=== PATIENT | female | born 1945 | race Caucasian/White ===

== ENCOUNTER → 2021-06-04 08:35 | Outpatient (CLI) | payer MEDICARE, SELFPAY ==
[2021-06-04 19:44] LABS: Cholesterol 221 mg/dL (140-199); HDL Cholesterol 81 mg/dL (40-60); LDL Cholesterol Calculated 127 mg/dL (<100); Triglycerides 65 mg/dL (35-150)
== END ==
PROVIDERS: PCP Family Medicine; Visit Provider Family Medicine
DX: E78.2 Mixed hyperlipidemia (principal)
CPT/HCPCS: 80061

== ENCOUNTER → 2021-06-05 10:40 | Outpatient (CLI) | payer MEDICARE, SELFPAY ==
--- NOTE | 2021-06-05 | DI.MRI.S_ITS ---
PROCEDURE: MR ANGIO HEAD WO CON INDICATIONS: Transient cerebral ischemic attack, unspecified TECHNIQUE: Noncontrast axial 3-D [id number] MR angiogram, with 3-dimensional maximum intensity projection (MIP) reformats of the internal carotid arteries and posterior circulation then performed. COMPARISON: Outside Facility, RG, MRI BRAIN WITHOUT CONTRAST, 04/07/2018, 9:23. FINDINGS: Image quality: Excellent. Anterior circulation: Intracranial internal carotid arteries demonstrate normal size and intraluminal flow signal. The flow within the paired anterior cerebral arteries is normal and symmetric. The flow within the middle cerebral arteries is normal and symmetric. The anterior communicating artery is seen. No stenoses, occlusions, or aneurysms. Posterior circulation: Visualized portions of the vertebral arteries demonstrate normal caliber, and join to form a normal appearing basilar artery. The right vertebral artery largely terminates in the right posterior inferior cerebellar artery. There is a prominent right posterior communicating artery seen, with an accompanying diminutive right P1 segment. This is attributed to a type origin of the right posterior cerebral artery, which is considered to be a normal developmental variant of typically no clinical consequence. There is approximately 50% narrowing seen involving the distal right P1 segment. The flow within the posterior cerebral arteries otherwise is normal and symmetric. No stenoses, occlusions, or aneurysms. IMPRESSION: There is focal approximately 50% narrowing seen involving the distal right P1 segment. Awfplt-[id number]-[id number] developmental anomalies are incidentally noted. Dictated by: Jace Garibay M.D. on 06/05/2021 at 10:37 Approved by: Jace Garibay M.D. on 06/05/2021 at 10:39
--- NOTE | 2021-06-05 | DI.US.S_ITS ---
PROCEDURE: US CAROTID DOPPLER BI INDICATIONS: TIA TECHNIQUE: Color and pulse Doppler interrogation was performed of both carotid systems, with image documentation and velocity measurements. COMPARISON: None. FINDINGS: Stenosis calculations are based on SRU (Society of Radiologists in Ultrasound) criteria. Right side: Brachial blood pressure: 136/72 mm Hg. Common carotid artery peak systolic velocity: 72 cm/sec. Internal carotid artery peak systolic velocity: 76 cm/sec. Internal carotid artery end diastolic velocity: 21 cm/sec. External carotid artery peak systolic velocity: 57 cm/sec. ICA/CCA peak systolic ratio: 1.1 . Key scale imaging description: No identified calcific or soft plaque Percent internal carotid artery stenosis: None seen . Vertebral artery: Flow direction is antegrade. Left side: Brachial blood pressure: 138/72 mm Hg. Common carotid artery peak systolic velocity: 76 cm/sec. Internal carotid artery peak systolic velocity: 89 cm/sec. Internal carotid artery end diastolic velocity: 25 cm/sec. External carotid artery peak systolic velocity: 52 cm/sec. ICA/CCA peak systolic ratio: 1.2 . Key scale imaging description: No identified calcific or soft plaque Percent internal carotid artery stenosis: None found . Vertebral artery: Flow direction is antegrade. IMPRESSION: No appreciable stenosis involving the proximal internal carotid arteries bilaterally. Vertebral arterial flow is antegrade in direction. Dictated by: Leonid Yun M.D. on 06/05/2021 at 15:53 Approved by: Leonid Yun M.D. on 06/05/2021 at 16:07
== END ==
PROVIDERS: PCP Family Medicine; Referring Provider Psychiatry & Neurology Neurology; Visit Provider Psychiatry & Neurology Neurology
DX: G45.9 Transient cerebral ischemic attack, unspecified (principal); R47.89 Other speech disturbances
CPT/HCPCS: 70544; 93880

== ENCOUNTER → 2021-11-04 12:04 | Outpatient (CLI) | payer MEDICARE, SELFPAY ==
--- NOTE | 2021-11-04 12:05 | DI.US.S_ITS ---
ULTRASOUND OF LEFT BREAST: 11/04/2021 CLINICAL: Patient returns today to evaluate a focal asymmetry in the left breast. Comparison is made [facility], 07/22/2021 mammogram - [facility], and 07/21/2021 mammogram - [facility]. Color flow and real-time ultrasound of the left breast were performed. Key scale images of the real-time examination were reviewed. There is a 1 cm x 0.4 cm x 0.9 cm wider than tall oval cyst with smooth thin septated internal crouch in the left breast at 8 o'clock middle depth 3 cm from the nipple. This oval cyst is hypoechoic with internal echoes and posterior acoustic enhancement. This correlates with mammography findings. Color flow imaging demonstrates that there is no vascularity present. IMPRESSION: PROBABLY BENIGN The 1 cm x 0.4 cm x 0.9 cm wider than tall oval cyst in the left breast likely represents a complicated cyst and is probably benign. A follow-up bilateral mammogram and a left ultrasound in 6 months is recommended to demonstrate stability. Findings and recommendations were conveyed to the patient during today's evaluation. This exam was interpreted at Station ID: [id number]. Electronically Signed By: Kar Orellana M.D. at/:11/04/2021 13:46:56 letter sent: Followup Recommended Ultrasound BI-RADS: 3 Probably benign
--- NOTE | 2021-11-04 12:05 | DI.MG.S_ITS ---
UNILATERAL LEFT DIGITAL DIAGNOSTIC MAMMOGRAM 3D/2D SHORT-TERM FOLLOW-UP: 11/04/2021 CLINICAL: Additional evaluation requested from prior study. Comparison is made to exams dated: 07/21/2021 mammogram - [facility] and 07/22/2021 mammogram - [facility]. The tissue of left breast is heterogeneously dense. This may lower the sensitivity of mammography. There is a 0.7 cm oval equal density focal asymmetry in the left breast at 7 o'clock middle depth. Previously seen focal asymmetry in the posterior aspect of the upper inner quadrant of the left breast is not seen on today's additional imaging and likely represents summation artifact. No other significant masses or calcifications are seen in the breast. IMPRESSION: INCOMPLETE: NEEDS ADDITIONAL IMAGING EVALUATION The 0.7 cm oval equal density focal asymmetry in the left breast resembles a cyst, fibroglandular tissue, or a lymph node and is indeterminate. An ultrasound is recommended for further evaluation and is scheduled to immediately follow this examination. This exam was interpreted at Station ID: [id number]. NOTE: For mammograms, a report in lay terms will be sent to the patient. Approximately 15% of breast malignancies will not be visualized mammographically. In the management of a palpable breast mass, a negative mammogram must not discourage biopsy of a clinically suspicious lesion. Electronically Signed By: Kar Orellana M.D. aty/:11/04/2021 12:44:30 ACR BI-RADS Category 0: Incomplete 3340F
== END ==
PROVIDERS: PCP Family Medicine; Referring Provider Family Medicine; Visit Provider Family Medicine
DX: R92.8 Other abnormal and inconclusive findings on diagnostic imaging of breast (principal); N60.02 Solitary cyst of left breast
CPT/HCPCS: 76642; 77065; G0279

== ENCOUNTER → 2021-11-24 11:08 | Outpatient (CLI) | payer MEDICARE, SELFPAY ==
--- NOTE | 2021-11-24 11:09 | DI.RAD.S_ITS ---
PROCEDURE: XR DEXA AXIAL SKELETON INDICATIONS: osteoporosis screening COMPARISON: None. FINDINGS: This blank DEXA report has been sent in error by the PACS system. The correct and complete report will be forthcoming in 1-2 days. Thank you for your patience and understanding. Dictated by: Darleen Dyson MD, PhD on 11/24/2021 at 16:56 Approved by: Darleen Dyson MD, PhD on 11/24/2021 at 16:56
== END ==
PROVIDERS: PCP Family Medicine; Referring Provider Physician Assistant; Visit Provider Physician Assistant
DX: M85.852 Other specified disorders of bone density and structure, left thigh (principal); Z13.820 Encounter for screening for osteoporosis; Z78.0 Asymptomatic menopausal state; E07.9 Disorder of thyroid, unspecified; Z82.62 Family history of osteoporosis
CPT/HCPCS: 77080

== ENCOUNTER → 2022-05-10 14:37 | Outpatient (CLI) | payer MEDICARE, SELFPAY ==
[2022-05-10 19:30] LABS: Add Manual Diff / Slide Review NO; Basophils Absolute Auto 0 /uL (0-100); Basophils Percent Auto 0.7 % (0-2); Eosinophils Absolute Auto 100 /uL (0-450); Eosinophils Percent Auto 1.2 % (2-4); Hematocrit 39.1 % (36-46); Hemoglobin 13.5 g/dL (12.0-16.0); Lymphocytes Absolute Auto 1800 /uL (1100-4500); Lymphocytes Percent Auto 41.2 % (25-40); Mean Corpuscular HGB Conc 34.5 % (30-36); Mean Corpuscular Hemoglobin 32.5 PG (26-34); Monocytes Absolute Auto 300 /uL (0-900); Monocytes Percent Auto 7.4 % (3-14); Neutrophils Absolute Auto 2200 /uL (1500-7000); Neutrophils Percent Auto 49.5 % (50-75); Platelet Count 212 X10^3/uL (150-400); Red Blood Cell Count 4.16 X10^6/uL (4.0-5.2); Red Cell Distribution Width 13.5 % (11.6-14.8); White Blood Cell Count 4.5 X10^3/uL (4.5-11.0)
[2022-05-10 19:33] LABS: Cholesterol 196 mg/dL (140-199); HDL Cholesterol 89 mg/dL (40-60); LDL Cholesterol Calculated 100 mg/dL (<100); Triglycerides 37 mg/dL (35-150)
[2022-05-10 22:22] LABS: Alanine Aminotransferase 25 IU/L (<35); Albumin Globulin Ratio 1.7 (1.0-2.8); Alkaline Phosphatase 73 U/L (38-126); Aspartate Aminotransferase 33 IU/L (14-36); Bilirubin Total 0.4 mg/dL (0.2-1.3); Blood Urea Nitrogen 16 mg/dL (7-17); Calcium 9.2 mg/dL (8.4-10.2); Carbon Dioxide 27 mmol/L (22-32); Chloride 104 mmol/L (98-107); Estimated Glomerular Filt Rate > 60 mL/min (>60); Globulin 2.3 g/dL (1.7-4.1); Glucose 96 mg/dL (80-110); HEMOLYSIS < 15 (0-50); Potassium 3.6 mmol/L (3.4-5.1); Sodium 140 mmol/L (137-145); Total Protein 6.3 g/dL (6.3-8.2)
[2022-05-11 00:45] LABS: TSH w/ Reflex to FT4 3.61 uIU/mL (0.47-4.68)
== END ==
PROVIDERS: PCP Family Medicine; Visit Provider Family Medicine
DX: E78.2 Mixed hyperlipidemia (principal); E03.9 Hypothyroidism, unspecified; M85.80 Other specified disorders of bone density and structure, unspecified site
CPT/HCPCS: 80053; 80061; 84443; 85025

== ENCOUNTER → 2022-05-13 13:00 | Outpatient (CLI) | payer MEDICARE, SELFPAY ==
--- NOTE | 2022-05-13 13:01 | DI.MG.S_ITS ---
BILATERAL DIGITAL DIAGNOSTIC MAMMOGRAM 3D/2D SHORT-TERM FOLLOW-UP: 05/13/2022 CLINICAL: Short term follow up of the left breast, due for bilateral imaging. Comparison is made to exams dated: 11/04/2021 ultrasound, 11/04/2021 mammogram - [facility], 07/22/2021 mammogram - [facility], and 07/21/2021 mammogram - [facility]. The tissue of both breasts is heterogeneously dense. This may lower the sensitivity of mammography. There is a stable 1 cm x 0.4 cm x 0.9 cm complicated cyst in the left breast at 8 o'clock middle depth 3 cm from the nipple. No other significant masses, calcifications, or other findings are seen in either breast. There has been no significant interval change. IMPRESSION: INCOMPLETE: NEEDS ADDITIONAL IMAGING EVALUATION The stable 1 cm x 0.4 cm x 0.9 cm complicated cyst in the left breast is indeterminate. An ultrasound is recommended. Based on the Tyrer Cuzick model (a risk assessment model) the patient's lifetime risk is 3.9% and her 10 year risk is 0.0%. According to the ACR, ACS, and NCCN guidelines, an annual breast MRI exam along with mammogram is recommended if the patient's lifetime risk is 20% or greater. This exam was interpreted at Station ID: [id number]. NOTE: For mammograms, a report in lay terms will be sent to the patient. Approximately 15% of breast malignancies will not be visualized mammographically. In the management of a palpable breast mass, a negative mammogram must not discourage biopsy of a clinically suspicious lesion. Electronically Signed By: Marquez Conteh M.D. jr/:05/13/2022 14:34:37 ACR BI-RADS Category 0: Incomplete 3340F
--- NOTE | 2022-05-13 13:01 | DI.US.S_ITS ---
PROCEDURE: BREAST LT LIMITED COMPARISON: [facility], BREAST LT LIMITED, 11/04/2021, 12:58. INDICATIONS: follow up abnormal US 11/04/21 FINDINGS: IMPRESSION: Dictated by: Marquez Conteh M.D. on 05/13/2022 at 14:31 Approved by: Marquez Conteh M.D. on 05/13/2022 at 14:32
--- NOTE | 2022-05-13 14:53 | DI.US.S_ITS ---
At the request of: SANIA PINTO Procedure: US breast LT limited LIMITED ULTRASOUND OF LEFT BREAST: 05/13/2022 CLINICAL: 6 month follow-up of cyst in the left breast. No prior exams were available for comparison. Color flow and real-time ultrasound of the left breast 8 o'clock region were performed. Key scale images of the real-time examination were reviewed. There is a stable benign 1 cm x 0.4 cm x 0.9 cm wider than tall oval cyst with a septated internal wall in the left breast at 8 o'clock middle depth 3 cm from the nipple. This oval cyst is hypoechoic with internal echoes and posterior acoustic enhancement. This correlates with mammography findings. Color flow imaging demonstrates that there is no vascularity present. Previously seen focal asymmetry in the posterior aspect of the upper inner quadrant of the left breast is not seen on today's additional imaging and likely represents summation artifact. IMPRESSION: BENIGN There is no sonographic evidence of malignancy. The stable 1 cm x 0.4 cm x 0.9 cm wider than tall oval cyst in the left breast likely represents a complicated cyst and is benign. A 1 year screening mammogram is recommended. This exam was interpreted at Station ID: [id number]. Electronically Signed By: Marquez Conteh M.D., jr/clarence:05/13/2022 14:33:46 Continued Report - Page 2 of 2 Patient Name: DAVID MORRIS date: 1945 Sex: F Attending Physician: Jesus Indications: Date: 05/13/2022 14:01 At the request of: SANIA PINTO Procedure: US breast LT limited letter sent: Normal Exam Ultrasound BI-RADS: 2 Benign
== END ==
PROVIDERS: PCP Family Medicine; Referring Provider Family Medicine; Visit Provider Family Medicine
DX: R92.8 Other abnormal and inconclusive findings on diagnostic imaging of breast (principal); N60.02 Solitary cyst of left breast
CPT/HCPCS: 76642; 77066; G0279

== ENCOUNTER → 2022-07-07 14:39 | Outpatient (CLI) | payer MEDICARE, SELFPAY ==
[2022-07-09 22:04] LABS: Fecal Immunochemical Test Negative (Negative)
== END ==
PROVIDERS: PCP Family Medicine; Visit Provider Family Medicine
DX: Z12.11 Encounter for screening for malignant neoplasm of colon (principal)
CPT/HCPCS: 82274

== ENCOUNTER → 2023-02-10 13:45 | Outpatient (CLI) | payer MEDICARE, SELFPAY ==
[2023-02-10 20:30] LABS: Add Manual Diff / Slide Review NO; Basophils Absolute Auto 0 /uL (0-100); Basophils Percent Auto 0.8 % (0-2); Eosinophils Absolute Auto 100 /uL (0-450); Eosinophils Percent Auto 1.9 % (2-4); Hematocrit 39.9 % (36-46); Hemoglobin 13.8 g/dL (12.0-16.0); Lymphocytes Absolute Auto 1500 /uL (1100-4500); Lymphocytes Percent Auto 38.3 % (25-40); Mean Corpuscular HGB Conc 34.6 % (30-36); Mean Corpuscular Hemoglobin 32.4 PG (26-34); Mean Corpuscular Volume 93.7 fL (80-100); Monocytes Absolute Auto 300 /uL (0-900); Monocytes Percent Auto 8.5 % (3-14); Neutrophils Absolute Auto 2000 /uL (1500-7000); Neutrophils Percent Auto 50.5 % (50-75); Platelet Count 225 X10^3/uL (150-400); Red Blood Cell Count 4.26 X10^6/uL (4.0-5.2); Red Cell Distribution Width 13.2 % (11.6-14.8); White Blood Cell Count 3.9 X10^3/uL (4.5-11.0)
[2023-02-10 20:54] LABS: Alanine Aminotransferase 26 IU/L (<35); Albumin 3.8 g/dL (3.5-5.0); Albumin Globulin Ratio 1.5 (1.0-2.8); Alkaline Phosphatase 85 U/L (38-126); Aspartate Aminotransferase 36 IU/L (14-36); BUN Creatinine Ratio 32.1 (6-22); Bilirubin Total 0.4 mg/dL (0.2-1.3); Blood Urea Nitrogen 27 mg/dL (7-17); Carbon Dioxide 30 mmol/L (22-32); Chloride 101 mmol/L (98-107); Estimated Glomerular Filt Rate > 60 mL/min (>60); Globulin 2.6 g/dL (1.7-4.1); Glucose 108 mg/dL (80-110); HEMOLYSIS 21 (0-50); Sodium 137 mmol/L (137-145); Total Protein 6.4 g/dL (6.3-8.2)
[2023-02-10 21:05] LABS: Free T4, Direct Thyroxine 0.76 ng/dL (0.78-2.19)
[2023-02-10 21:15] LABS: Vitamin D 25 Hydroxy (D3) 88.3 ng/mL (30.0-100.0)
[2023-02-10 21:19] LABS: Thyroid Stimulating Hormone 2.25 uIU/mL (0.47-4.68)
[2023-02-11 21:07] LABS: x Labcorp Estim. Avg Glu (eAG) 105 mg/dL (.); x Labcorp Hemoglobin A1c 5.3 % (4.8-5.6)
== END ==
PROVIDERS: PCP Physician Assistant; Visit Provider Physician Assistant
DX: E03.9 Hypothyroidism, unspecified (principal); E78.00 Pure hypercholesterolemia, unspecified; R53.83 Other fatigue
CPT/HCPCS: 80053; 82306; 83036; 84439; 84443; 85025

== ENCOUNTER → 2023-05-16 11:28 | Outpatient (CLI) | payer MEDICARE, SELFPAY ==
[2023-05-16 20:14] LABS: Free T4, Direct Thyroxine 1.39 ng/dL (0.78-2.19)
[2023-05-16 20:28] LABS: Thyroid Stimulating Hormone 2.61 uIU/mL (0.47-4.68)
== END ==
PROVIDERS: PCP Physician Assistant; Visit Provider Physician Assistant
DX: E03.9 Hypothyroidism, unspecified (principal)
CPT/HCPCS: 84439; 84443

== ENCOUNTER → 2023-05-26 11:46 | Outpatient (CLI) | payer MEDICARE, SELFPAY ==
--- NOTE | 2023-05-26 | DI.MG.S_ITS ---
BILATERAL DIGITAL SCREENING MAMMOGRAM 3D/2D WITH CAD: 05/26/2023 CLINICAL: Routine screening. Family history of breast cancer. Comparison is made to exams dated: 05/13/2022 mammogram, 11/04/2021 mammogram - [facility], 07/22/2021 mammogram - [facility], and 07/21/2021 mammogram - [facility]. Both breasts are heterogeneously dense, which may obscure small masses (category c / 51-75% glandular tissue). Current study was also evaluated with a Computer Aided Detection (CAD) system. No significant masses, calcifications, or other findings are seen in either breast. There has been no significant interval change. IMPRESSION: NEGATIVE There is no mammographic evidence of malignancy. A 1 year screening mammogram is recommended. Based on the Tyrer Cuzick model (a risk assessment model) the patient's lifetime risk is 3.3% and her 10 year risk is 0.0%. According to the ACR, ACS, and NCCN guidelines, an annual breast MRI exam along with mammogram is recommended if the patient's lifetime risk is 20% or greater. This exam was interpreted at Station ID: [id number]. NOTE: For mammograms, a report in lay terms will be sent to the patient. Approximately 15% of breast malignancies will not be visualized mammographically. In the management of a palpable breast mass, a negative mammogram must not discourage biopsy of a clinically suspicious lesion. Electronically Signed By: Silvino norman/clarence:05/26/2023 16:08:38 letter sent: Normal Exam ACR BI-RADS Category 1: Negative [id number]
== END ==
PROVIDERS: PCP Family Medicine; Referring Provider Physician Assistant; Visit Provider Physician Assistant
DX: Z12.31 Encounter for screening mammogram for malignant neoplasm of breast (principal); Z80.3 Family history of malignant neoplasm of breast
CPT/HCPCS: 77063; 77067

== ENCOUNTER → 2023-09-09 10:51 | Outpatient (CLI) | payer MEDICARE, SELFPAY ==
--- NOTE | 2023-09-09 11:00 | DI.MRI.S_ITS ---
PROCEDURE: MR THORACIC SPINE WO CON INDICATIONS: saddle anesthesia, bowel and bladder changes, radiculopathy TECHNIQUE: Noncontrast sagittal T1 spine echo and T2 fast spin echo, sagittal STIR, and T2 fast spin echo through the thoracic spine. COMPARISON: [facility] ([place]), [place], XR THORACIC SPINE 3V, 08/02/2023, 10:51. FINDINGS: Image quality: This examination is limited by involuntary motion artifact. Alignment and Curvature: Accentuated thoracic kyphosis is seen. No focal AP alignment abnormality is seen. Bone Marrow: Marrow is of normal overall signal. No acute vertebral body compression fractures. Spinal Cord: Visualized spinal cord is normal in size and signal. Paraspinous Soft Tissues: Numerous apparent perineural cysts can be seen involving the exit foramina. Miscellaneous: At the T5-T6 level, there is a central/left disc protrusion, with mild central canal narrowing and mild mass effect upon the ventral spinal cord. There is ifsn-ys-bklmtczs right-sided and mild left-sided neural foraminal narrowing. At the T7-T8 level, there is a central/right disc osteophyte protrusion, with mild central canal narrowing and mild mass effect upon the ventral spinal cord. At least moderate bilateral neural foraminal narrowing can be seen, which is largely caused by the perineural cysts. Milder degenerative changes are seen elsewhere. IMPRESSION: Generalized thoracic spine degenerative change can be seen. Additional findings: Numerous perineural cysts involving the exit foramena Dictated by: Jace Garibay M.D. on 09/09/2023 at 15:24 Approved by: Jace Garibay M.D. on 09/09/2023 at 15:26
== END ==
PROVIDERS: PCP Family Medicine; Referring Provider Family Medicine; Visit Provider Family Medicine
DX: G96.191 Perineural cyst (principal); M47.816 Spondylosis without myelopathy or radiculopathy, lumbar region; R20.0 Anesthesia of skin; R33.9 Retention of urine, unspecified; M47.24 Other spondylosis with radiculopathy, thoracic region; R15.9 Full incontinence of feces
CPT/HCPCS: 72146

== ENCOUNTER → 2023-09-30 12:21 | Outpatient (CLI) | payer MEDICARE, SELFPAY ==
--- NOTE | 2023-09-30 12:22 | DI.MRI.S_ITS ---
PROCEDURE: MR LUMBAR SPINE WO CON INDICATIONS: urinary incontinence, fecal incontinence TECHNIQUE: Noncontrast sagittal T1 spin echo and T2 fast echo, sagittal STIR, and T2 fast spin echo through the lumbar spine. In cases with scoliosis, additional coronal T2 fast spin echo may be performed. COMPARISON: [facility], MR, MR THORACIC SPINE WO CON, 09/09/2023, 10:58. FINDINGS: Image quality: Excellent. Alignment and Curvature: There is normal bony alignment. Bone Marrow: Marrow is of normal overall signal. No acute vertebral body compression fractures. Spinal Cord: Conus medullaris terminates at the L1 level. Visualized cord demonstrates normal signal and size. Paraspinous Soft Tissues: No paravertebral masses. Lumbosacral discs and facet joints: As was seen along the thoracic spine from earlier this month MRI there is uolp-ql-fugnupeh degenerative disc disease and facet osteoarthritis. This becomes progressively more prominent from L2 through L5, and is most prominent anteriorly at L4-5 where disc height reduction is associated with mild inflammatory changes in the adjacent anterior vertebral bodies, without disc edema. No paravertebral edema is seen. No area of significant spinal stenosis is found. Several scattered perineural cysts are seen along the lumbosacral spine, similar to the pattern noted within the thoracic spine.. IMPRESSION: Qdco-xu-[id number] degenerative disc disease and facet osteoarthritis as discussed, most prominent at L4-L5, but no mass or significant spinal stenosis is found. Etiology of urinary and fecal incontinence is not identified. Dictated by: Leonid Yun M.D. on 09/30/2023 at 14:00 Approved by: Leonid Yun M.D. on 09/30/2023 at 14:07
== END ==
PROVIDERS: PCP Family Medicine; Referring Provider Family Medicine; Visit Provider Family Medicine
DX: M47.816 Spondylosis without myelopathy or radiculopathy, lumbar region (principal); M51.36 Other intervertebral disc degeneration, lumbar region; M21.372 Foot drop, left foot; R33.9 Retention of urine, unspecified; R15.9 Full incontinence of feces
CPT/HCPCS: 72148

== ENCOUNTER → 2023-12-16 14:04 | Outpatient (CLI) | payer OTHER, SELFPAY ==
[2023-12-19 20:47] LABS: Fecal Immunochemical Test Negative (Negative)
== END ==
PROVIDERS: PCP Family Medicine; Visit Provider Family Medicine
DX: Z12.11 Encounter for screening for malignant neoplasm of colon (principal)
CPT/HCPCS: 82274

== ENCOUNTER → 2024-06-11 12:03 | Outpatient (CLI) | payer MEDICARE, SELFPAY ==
--- NOTE | 2024-06-11 12:03 | DI.MG.S_ITS ---
BILATERAL DIGITAL SCREENING MAMMOGRAM 3D/2D WITH CAD: 06/11/2024 CLINICAL: Routine screening. Family history of breast cancer. Comparison is made to exams dated: 05/26/2023 mammogram, 05/13/2022 mammogram - [facility], and [facility]22/20[facility]. Both breasts are heterogeneously dense, which may obscure small masses (category c / 51-75% glandular tissue). Current study was also evaluated with a Computer Aided Detection (CAD) system. No significant masses, calcifications, or other findings are seen in either breast. There has been no significant interval change. IMPRESSION: NEGATIVE There is no mammographic evidence of malignancy. A 1 year screening mammogram is recommended. Based on the Tyrer Cuzick model (a risk assessment model) the patient's lifetime risk is 1.5% and her 10 year risk is 0.0%. According to the ACR, ACS, and NCCN guidelines, an annual breast MRI exam along with mammogram is recommended if the patient's lifetime risk is 20% or greater. This exam was interpreted at Station ID: [id number]. NOTE: For mammograms, a report in lay terms will be sent to the patient. Approximately 15% of breast malignancies will not be visualized mammographically. In the management of a palpable breast mass, a negative mammogram must not discourage biopsy of a clinically suspicious lesion. Electronically Signed By: Esha curtis/clarence:06/11/2024 13:55:46 letter sent: Normal Exam ACR BI-RADS Category 1: Negative [id number]
== END ==
LOC: MAMMO 12:03
PROVIDERS: PCP Family Medicine; Referring Provider Family Medicine; Visit Provider Family Medicine
DX: Z12.31 Encounter for screening mammogram for malignant neoplasm of breast (principal); Z80.3 Family history of malignant neoplasm of breast; R92.333 Mammographic heterogeneous density, bilateral breasts
CPT/HCPCS: 77063; 77067

== ENCOUNTER → 2024-07-11 13:05 | Outpatient (CLI) | payer MEDICARE, SELFPAY ==
[2024-07-11 19:16] LABS: Add Manual Diff / Slide Review NO; Basophils Absolute Auto 0 /uL (0-100); Basophils Percent Auto 0.7 % (0-2); Eosinophils Absolute Auto 100 /uL (0-450); Eosinophils Percent Auto 1.3 % (2-4); Hematocrit 40.4 % (36-46); Hemoglobin 13.8 g/dL (12.0-16.0); Lymphocytes Absolute Auto 1600 /uL (1100-4500); Mean Corpuscular HGB Conc 34.2 % (30-36); Mean Corpuscular Hemoglobin 32.1 PG (26-34); Mean Corpuscular Volume 93.8 fL (80-100); Monocytes Absolute Auto 300 /uL (0-900); Monocytes Percent Auto 6.3 % (3-14); Neutrophils Absolute Auto 3100 /uL (1500-7000); Neutrophils Percent Auto 60.7 % (50-75); Platelet Count 248 X10^3/uL (150-400); Red Blood Cell Count 4.31 X10^6/uL (4.0-5.2); Red Cell Distribution Width 13.4 % (11.6-14.8); White Blood Cell Count 5.2 X10^3/uL (4.5-11.0)
[2024-07-11 19:57] LABS: Alanine Aminotransferase 26 IU/L (<35); Albumin Globulin Ratio 1.7 (1.0-2.8); Alkaline Phosphatase 88 U/L (38-126); Aspartate Aminotransferase 78 IU/L (14-36); BUN Creatinine Ratio 20.7 (6-22); Bilirubin Total 0.6 mg/dL (0.2-1.3); Blood Urea Nitrogen 17 mg/dL (7-17); Calcium 9.2 mg/dL (8.4-10.2); Carbon Dioxide 29 mmol/L (22-32); Chloride 101 mmol/L (98-107); Estimated Glomerular Filt Rate > 60 mL/min (>60); Globulin 2.4 g/dL (1.7-4.1); Glucose 159 mg/dL (80-110); HEMOLYSIS 21 (0-50); Potassium 4.1 mmol/L (3.4-5.1); Sodium 134 mmol/L (137-145); Total Protein 6.4 g/dL (6.3-8.2)
[2024-07-11 20:09] LABS: LDL Cholesterol Direct 81 mg/dL (<100)
[2024-07-11 20:34] LABS: Thyroid Stimulating Hormone 1.88 uIU/mL (0.47-4.68)
== END ==
PROVIDERS: PCP Family Medicine; Visit Provider Family Medicine
DX: G45.9 Transient cerebral ischemic attack, unspecified (principal); E03.9 Hypothyroidism, unspecified; E78.00 Pure hypercholesterolemia, unspecified; R53.83 Other fatigue
CPT/HCPCS: 80053; 83721; 84443; 85025

== ENCOUNTER → 2024-08-08 13:22 | Outpatient (CLI) | payer MEDICARE, SELFPAY ==
[2024-08-08 19:42] LABS: Alanine Aminotransferase 32 IU/L (<35); Albumin 3.8 g/dL (3.5-5.0); Albumin Globulin Ratio 1.5 (1.0-2.8); Alkaline Phosphatase 70 U/L (38-126); Aspartate Aminotransferase 40 IU/L (14-36); BUN Creatinine Ratio 18.8 (6-22); Bilirubin Total 0.5 mg/dL (0.2-1.3); Blood Urea Nitrogen 16 mg/dL (7-17); Calcium 9.2 mg/dL (8.4-10.2); Carbon Dioxide 31 mmol/L (22-32); Chloride 100 mmol/L (98-107); Estimated Glomerular Filt Rate > 60 mL/min (>60); Globulin 2.5 g/dL (1.7-4.1); Glucose 113 mg/dL (80-110); HEMOLYSIS < 15 (0-50); Potassium 3.9 mmol/L (3.4-5.1); Sodium 134 mmol/L (137-145); Total Protein 6.3 g/dL (6.3-8.2)
[2024-08-08 19:47] LABS: Hemoglobin A1C% w Est Avg Glu 5.1 % (4.0-6.0)
== END ==
PROVIDERS: PCP Family Medicine; Visit Provider Family Medicine
DX: E87.1 Hypo-osmolality and hyponatremia (principal); R73.9 Hyperglycemia, unspecified; R74.01 Elevation of levels of liver transaminase levels
CPT/HCPCS: 80053; 83036

== ENCOUNTER → 2024-10-30 12:43 | Outpatient (CLI) | payer MEDICARE, SELFPAY ==
--- NOTE | 2024-10-30 12:44 | DI.RAD.S_ITS ---
PROCEDURE: XR DEXA AXIAL SKELETON INDICATIONS: osteopenia COMPARISON: [facility], [place], XR DEXA AXIAL SKELETON, 11/24/2021, 11:39. FINDINGS: Lumbar Spine: Bone mineral density 0.848 g/cm2, T score -1.9, previously -1.1. Left Hip: Bone mineral density 0.691 g/cm2, T score -2.1, previously -1.9. Left Femoral Neck: Bone mineral density 0.646 g/cm2, T score -1.8, previously -1.6. Right Hip: Bone mineral density 0.721 g/cm2, T score -1.8, previously -1.8. Right Femoral Neck: Bone mineral density 0.627 g/cm2, T score -2.0, previously -1.2. Fracture Risk Calculation (when applicable): 10-year fracture risk of a major osteoporotic fracture 14 percent and of a hip fracture 4.1 percent. (T score greater or equal to -1.0 to: NORMAL) (T score from -1.1 to -2.4: OSTEOPENIA) (T score less than or equal to -2.5: OSTEOPOROSIS) IMPRESSION: 1. Osteopenia of the lumbar spine. 2. Osteopenia of the left hip and femoral neck. 3. Osteopenia of the right hip and femoral neck. Follow-up guidelines as follows: Osteoporosis: Consider a repeat DEXA and Vertebral Fracture Assessment (VFA) exam in 2 years or sooner if medically necessary, to reassess this patient's status. Osteopenia: Consider a repeat DEXA in 2-3 years to reassess this patient's status, or if there is a new clinical indication. Normal: Consider a repeat DEXA in 5 years or sooner, or if there is a new clinical indication. All treatment decisions require clinical judgment and consideration of individual patient factors, including patient preferences, comorbidities, previous drug use, risk factors not captured in the FRAX model (e.g., frailty, falls, vitamin D deficiency, increased bone turnover, interval significant decline in bone density ) and possible under- or over-estimation of fracture risk by FRAX. In addition, the NOF Guide recommends that FDA-approved medical therapies be considered in postmenopausal women and men age >= 50 years with a: * Hip or vertebral (clinical or morphometric) fracture * T-score of <=-2.5 at the spine or hip * Ten-year fracture probability by FRAX of >= 3% for hip fracture or >=20% for major osteoporotic fracture. People with diagnosed cases of osteoporosis or at high risk for fracture should have regular bone mineral density tests. For patients eligible for Medicare, routine testing is allowed once every 2 years. The testing frequency can be increased to one year for patients who have rapidly progressing disease, those who are receiving or discontinuing medical therapy to restore bone mass, or have additional risk factors. Dictated by: Ismael Reinoso M.D. on 10/30/2024 at 15:06 Approved by: Ismael Reinoso M.D. on 10/30/2024 at 15:15
== END ==
PROVIDERS: PCP Family Medicine; Referring Provider Family Medicine; Visit Provider Family Medicine
DX: Z78.0 Asymptomatic menopausal state (principal); M85.89 Other specified disorders of bone density and structure, multiple sites
CPT/HCPCS: 77080

== ENCOUNTER → 2024-11-19 09:07 | Outpatient (CLI) | payer MEDICARE, OTHER, SELFPAY ==
[2024-11-19 19:17] LABS: Alanine Aminotransferase 33 IU/L (<35); Albumin 4.4 g/dL (3.5-5.0); Albumin Globulin Ratio 1.6 (1.0-2.8); Alkaline Phosphatase 76 U/L (38-126); Aspartate Aminotransferase 69 IU/L (14-36); BUN Creatinine Ratio 22.7 (6-22); Bilirubin Total 0.7 mg/dL (0.2-1.3); Blood Urea Nitrogen 17 mg/dL (7-17); Calcium 9.2 mg/dL (8.4-10.2); Carbon Dioxide 27 mmol/L (22-32); Chloride 103 mmol/L (98-107); Cholesterol 234 mg/dL (140-199); Estimated Glomerular Filt Rate > 60 mL/min (>60); Globulin 2.7 g/dL (1.7-4.1); Glucose 91 mg/dL (80-110); HDL Cholesterol 84 mg/dL (40-60); HEMOLYSIS 21 (0-50); LDL Cholesterol Calculated 137 mg/dL (<100); Potassium 4.1 mmol/L (3.4-5.1); Sodium 133 mmol/L (137-145); Total Protein 7.1 g/dL (6.3-8.2); Triglycerides 66 mg/dL (35-150)
== END ==
PROVIDERS: PCP Family Medicine; Visit Provider Family Medicine
DX: G45.9 Transient cerebral ischemic attack, unspecified (principal); E87.1 Hypo-osmolality and hyponatremia; R73.9 Hyperglycemia, unspecified; E78.00 Pure hypercholesterolemia, unspecified; R74.01 Elevation of levels of liver transaminase levels
CPT/HCPCS: 80053; 80061

== ENCOUNTER → 2025-02-05 13:05 | Outpatient (CLI) | payer MEDICARE, OTHER, SELFPAY ==
[2025-02-05 18:41] LABS: Add Manual Diff / Slide Review NO; Basophils Absolute Auto 100 /uL (0-100); Basophils Percent Auto 1.1 % (0-2); Eosinophils Absolute Auto 100 /uL (0-450); Eosinophils Percent Auto 1.2 % (2-4); Hematocrit 42.4 % (36-46); Hemoglobin 14.3 g/dL (12.0-16.0); Lymphocytes Absolute Auto 1500 /uL (1100-4500); Lymphocytes Percent Auto 30.3 % (25-40); Mean Corpuscular HGB Conc 33.8 % (30-36); Mean Corpuscular Hemoglobin 31.6 PG (26-34); Mean Corpuscular Volume 93.3 fL (80-100); Monocytes Absolute Auto 400 /uL (0-900); Monocytes Percent Auto 7.1 % (3-14); Neutrophils Absolute Auto 3000 /uL (1500-7000); Neutrophils Percent Auto 60.3 % (50-75); Platelet Count 258 X10^3/uL (150-400); Red Blood Cell Count 4.54 X10^6/uL (4.0-5.2); Red Cell Distribution Width 13.4 % (11.6-14.8); White Blood Cell Count 4.9 X10^3/uL (4.5-11.0)
[2025-02-05 18:54] LABS: Alanine Aminotransferase 32 IU/L (<35); Albumin 4.4 g/dL (3.5-5.0); Albumin Globulin Ratio 1.8 (1.0-2.8); Alkaline Phosphatase 72 U/L (38-126); Aspartate Aminotransferase 78 IU/L (14-36); BUN Creatinine Ratio 23.4 (6-22); Bilirubin Total 0.6 mg/dL (0.2-1.3); Blood Urea Nitrogen 18 mg/dL (7-17); Calcium 9.5 mg/dL (8.4-10.2); Carbon Dioxide 29 mmol/L (22-32); Chloride 100 mmol/L (98-107); Estimated Glomerular Filt Rate > 60 mL/min (>60); Globulin 2.4 g/dL (1.7-4.1); Glucose 123 mg/dL (80-110); HEMOLYSIS 22 (0-50); Potassium 3.9 mmol/L (3.4-5.1); Sodium 136 mmol/L (137-145); Total Protein 6.8 g/dL (6.3-8.2)
[2025-02-05 19:07] LABS: Vitamin D 25 Hydroxy (D3) 82.8 ng/mL (30.0-100.0)
[2025-02-05 19:19] LABS: Thyroid Stimulating Hormone 1.66 uIU/mL (0.47-4.68)
== END ==
PROVIDERS: PCP Family Medicine; Visit Provider Family Medicine
DX: M81.0 Age-related osteoporosis without current pathological fracture (principal); R53.83 Other fatigue; E87.1 Hypo-osmolality and hyponatremia; E03.9 Hypothyroidism, unspecified
CPT/HCPCS: 80053; 82306; 84443; 85025

== ENCOUNTER → 2025-06-03 13:05 | Outpatient (CLI) | payer MEDICARE, OTHER, SELFPAY ==
[2025-06-03 19:56] LABS: HEMOLYSIS 24 (0-50); Iron 80 ug/dL (37-170)
[2025-06-03 20:10] LABS: Percent Iron Saturation 26 % (15-50); Total Iron Binding Capacity 308 ug/dL (265-497); Transferrin 260 mg/dL (206-381)
[2025-06-03 20:17] LABS: Hemoglobin A1C% w Est Avg Glu 5.4 % (4.0-6.0)
[2025-06-03 20:41] LABS: Ferritin 50 ng/mL (11-264)
[2025-06-03 21:04] LABS: Folate 14.1 ng/mL (2.76-20.0); Vitamin B12 317 pg/mL (239-931)
[2025-06-04 23:07] LABS: Hepatitis A Antibody IgM Negative (Negative); Hepatitis B Core Antibody IgM Negative (Negative); Hepatitis C Antibody Non Reactive (Non Reactive)
[2025-06-05 15:10] LABS: Free Kappa Lt Chains, Serum 13.6 mg/L (3.3-19.4); Free Lambda Lt Chains,Serum 11.7 mg/L (5.7-26.3)
== END ==
PROVIDERS: PCP Family Medicine; Visit Provider Family Medicine
DX: K75.89 Other specified inflammatory liver diseases (principal); R73.9 Hyperglycemia, unspecified; R20.0 Anesthesia of skin; R26.89 Other abnormalities of gait and mobility
CPT/HCPCS: 80074; 82607; 82728; 82746; 82784; 83036; 83540; 83550; 83883; 84155; 84165; 86038; 86334

== ENCOUNTER → 2025-07-16 10:00 | Outpatient (CLI) | payer MEDICARE, OTHER, SELFPAY | PROVIDERS: PCP Family Medicine; Visit Provider Family Medicine | DX: Z12.11 Encounter for screening for malignant neoplasm of colon (principal) | CPT/HCPCS: 82274 ==